=== PATIENT | female | born 1995 | race Caucasian/White ===

== ENCOUNTER 2016-06-20 21:28 | Emergency (ER) | payer OTHER ==
[2016-06-20 21:35] VITALS: BP 140/75; PULSE 103; RESP 16; TEMP 98.6; O2SAT 97
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
[2016-06-20] MEDS ORDERED: TDAP ADULT 0.5 ML INJ (BOOSTRIX) IM ONE (22:04)
== END 2016-06-20 22:33 | disposition home or self-care (01) ==
DX: T22.212A Burn of second degree of left forearm, initial encounter (principal); T31.0 Burns involving less than 10% of body surface; Z23 Encounter for immunization; X19.XXXA Contact with other heat and hot substances, initial encounter; Y93.89 Activity, other specified

== ENCOUNTER 2017-11-08 11:05 | Emergency (ER) | payer OTHER ==
[2017-11-08 11:32] LABS: PLATELET COUNT 315 10^3/uL (150-400)
--- NOTE | 2017-11-08 11:43 | EDPHY ---
H & P Time Seen by Provider: 11/08/17 11:16 HPI/ROS: CHIEF COMPLAINT: Vaginal bleeding HISTORY OF PRESENT ILLNESS: The patient is a 21-year-old female G1 para 0 last menstrual period 08/06/2017 who presents to the emergency department with vaginal bleeding. Patient states she developed abdominal cramping last Saturday or . She saw Dr. Saavedra at [facility] and underwent ultrasound imaging. She was told that she potentially had a sac with no true fetus. On Saturday she had a recheck. At that time a repeat ultrasound showed a heartbeat. Over the weekend the patient has had intermittent spotting. This morning she had increased vaginal bleeding with bright red blood. She has mild suprapubic cramping. This feels similar to menses. No lightheadedness or dizziness. REVIEW OF SYSTEMS: 10 systems were reveiwed and are negative with the exception of the elements mentioned in the history of present illness. Past Medical/Surgical History: Negative Past surgical history: Orthopedic surgery Social history: Patient does not smoke Smoking Status: Never smoked Physical Exam: Vitals noted GENERAL: Well-appearing, in no acute distress, alert. HEENT: Eyes normal to inspection,no signs of dehydration. NECK: Normal, supple. RESPIRATORY: Clear to auscultation bilaterally, no rales, rhonchi or wheezing. CVS: Regular rate and rhythm, no rubs, murmurs, or gallops. ABDOMEN: Soft, mild suprapubic tenderness to palpation with no rebound or guarding, nondistended, no organomegaly. BACK: Normal to inspection, no CVA tenderness. SKIN: Normal color, no rash, warm, dry. No pallor. EXTREMITIES: No pedal edema, no calf tenderness, no Homans sign or cords, no joint swelling. NEURO/PSYCH: Alert and oriented, normal mood and affect Constitutional: Initial Vital Signs Temperature (C) 37.0 C 11/08/17 11:07 Heart Rate 84 11/08/17 11:07 Respiratory Rate 16 11/08/17 11:07 Blood Pressure 137/99 H 11/08/17 11:07 O2 Sat (%) 97 11/08/17 11:07 O2 Delivery Mode Room Air Allergies/Adverse Reactions: corn [[place]] Allergy (Verified 01/31/14 00:48) Iodine and Iodide Containing Produc Allergy (Verified 06/20/16 21:35) soy Allergy (Verified 01/31/14 00:48) wheat Allergy (Verified 01/31/14 00:48) nuts Allergy (Uncoded 01/31/14 00:48) sesame Allergy (Uncoded 01/31/14 00:48) Home Medications: Medication Instructions Recorded Hydrocodone/APAP 5/325 [[place] 1 - 2 tab PO Q4 #13 tab 11/08/17 5/325 (RX)] Ondansetron Odt [Zofran Odt 4 mg 4 mg PO Q4PRN PRN #7 tab 11/08/17 (*)] Medical Decision Making - Diagnostics Imaging Results: Imaging Impressions Obstetrics Ultrasound 11/08/17 11:19 Impression: 1. Early intrauterine with no cardiac activity. The deformed gestational sac in the lower uterine segment suggests this could be a failed . Recommend follow up. 2. No heterotopic or free fluid. Findings discussed with Emergency Department physician, Licha Lopez on , 13:37. ED Course/Re-evaluation: In the emergency department I discussed possible etiologies with the patient and family. I answered all her questions. An IV was placed. Laboratory studies and ultrasound were obtained. Patient's CBC and chemistry are unremarkable. The patient is quant is 2002. On 10/22/2017 her quant was [id number]. I received a call from the lab reporting that she had a positive anti-d test. Ultrasound: Early IUP with a gestational age of approximately 6 weeks and 0 days. There is no visible cardiac activity. After discussion with the radiologist he recommended further imaging by ultrasound. I discussed the laboratory findings with the patient. She states that she received RhoGAM approximately 1 month ago [facility] This would account for positive anti-d test. I again discussed ultrasound result with the radiologist. He did not visualize any cardiac activity. I discussed the case with Dr. Belcher. She recommended f/u next week. I discussed the results with the patient and family. I reviewed the beta quant and US results. Differential Diagnosis: My differential includes but is not limited to , ectopic , , previa, urinary tract infection, pyelonephritis - Data Points Laboratory Results: Laboratory Results 11/08/17 11:15 11/08/17 11:15 11/08/17 11/08/1718 11:35 11:15 11:15 WBC RBC Hgb Hct MCV MCH MCHC RDW Plt Count MPV Neut % (Auto) Lymph % (Auto) [place] % (Auto) Eos % (Auto) Baso % (Auto) Nucleat RBC Rel Count Absolute Neuts (auto) Absolute Lymphs (auto) Absolute Monos (auto) Absolute Eos (auto) Absolute Basos (auto) Absolute Nucleated RBC Immature Gran % Immature Gran # Sodium 141 mEq/L mEq/L (135-145) Potassium 4.2 mEq/L mEq/L (3.3-5.0) Chloride 106 mEq/L mEq/L (97-110) Carbon Dioxide 22 mEq/l mEq/l (22-31) Anion Gap 13 mEq/L mEq/L (8-16) BUN 12 mg/dL mg/dL (7-23) Creatinine 0.8 mg/dL mg/dL (0.6-1.0) Estimated GFR > 60 Glucose 90 mg/dL mg/dL (70-100) Calcium 9.9 mg/dL mg/dL (8.5-10.4) Beta HCG, Quant 2003.50 mIU/mL H mIU/mL (0.00-4.83) Urine Color RED Urine Appearance MODERATELY TURBID Urine pH 8.0 H (5.0-7.5) Ur Specific [place] 1.018 (1.002-1.030) Urine Protein 1+ H (NEGATIVE) Urine Ketones NEGATIVE (NEGATIVE) Urine Blood 3+ H (NEGATIVE) Urine Nitrate NEGATIVE (NEGATIVE) Urine Bilirubin NEGATIVE (NEGATIVE) Urine Urobilinogen NEGATIVE EU EU (0.2-1.0) Ur Leukocyte Esterase NEGATIVE (NEGATIVE) Urine RBC 3-5 /hpf H /hpf (0-3) Urine WBC 15-25 /hpf H /hpf (0-3) Ur Epithelial Cells TRACE /lpf /lpf (NONE-1+) Amorphous Sediment PRESENT /hpf /hpf (NONE-1+) Urine Bacteria 4+ /hpf H /hpf (NONE SEEN) Urine Glucose NEGATIVE (NEGATIVE) Patient ABO/Rh O NEGATIVE Antibody Screen POSITIVE Antibody Identification Anti-D 11/08/17 11:15 WBC 7.02 10^3/uL 10^3/uL (3.80-9.50) RBC 4.51 10^6/uL 10^6/uL (4.18-5.33) Hgb 13.6 g/dL g/dL (12.6-16.3) Hct 40.7 % % (38.0-47.0) MCV 90.2 fL fL (81.5-99.8) MCH 30.2 pg pg (27.9-34.1) MCHC 33.4 g/dL g/dL (32.4-36.7) RDW 13.1 % % (11.5-15.2) Plt Count 315 10^3/uL 10^3/uL (150-400) MPV 8.7 fL fL (8.7-11.7) Neut % (Auto) 46.7 % % (39.3-74.2) Lymph % (Auto) 40.2 % % (15.0-45.0) [place] % (Auto) 8.0 % % (4.5-13.0) Eos % (Auto) 4.4 % % (0.6-7.6) Baso % (Auto) 0.4 % % (0.3-1.7) Nucleat RBC Rel Count 0.0 % % (0.0-0.2) Absolute Neuts (auto) 3.28 10^3/uL 10^3/uL (1.70-6.50) Absolute Lymphs (auto) 2.82 10^3/uL 10^3/uL (1.00-3.00) Absolute Monos (auto) 0.56 10^3/uL 10^3/uL (0.30-0.80) Absolute Eos (auto) 0.31 10^3/uL 10^3/uL (0.03-0.40) Absolute Basos (auto) 0.03 10^3/uL 10^3/uL (0.02-0.10) Absolute Nucleated RBC 0.00 10^3/uL 10^3/uL (0-0.01) Immature Gran % 0.3 % % (0.0-1.1) Immature Gran # 0.02 10^3/uL 10^3/uL (0.00-0.10) Sodium Potassium Chloride Carbon Dioxide Anion Gap BUN Creatinine Estimated GFR Glucose Calcium Beta HCG, Quant Urine Color Urine Appearance Urine pH Ur Specific [place] Urine Protein Urine Ketones Urine Blood Urine Nitrate Urine Bilirubin Urine Urobilinogen Ur Leukocyte Esterase Urine RBC Urine WBC Ur Epithelial Cells Amorphous Sediment Urine Bacteria Urine Glucose Patient ABO/Rh Antibody Screen Antibody Identification Medications Given: Discontinued Medications Fentanyl (Sublimaze) 50 mcg IVP EDNOW ONE Stop: 11/08/17 12:20 Last Admin: 11/08/17 12:26 Dose: 50 mcg Ondansetron HCl (Zofran) 4 mg IVP EDNOW ONE Stop: 11/08/17 12:20 Last Admin: 11/08/17 12:28 Dose: 4 mg Departure - Departure Disposition: Home, Routine, Self-Care Clinical Impression: Threatened Condition: Good Instructions: Threatened Miscarriage (ED) Additional Instructions: You need close follow-up with Dr. Martin. Return with increasing pain, vomiting , significant bleeding or any other concerns. Referrals: Elvia Martin MD [Unknown] - 5-7 days, call for appt. Prescriptions: Hydrocodone/APAP 5/325 [[place] 5/325 (RX)] 1 - 2 tab PO Q4 #13 tab Ondansetron Odt [Zofran Odt 4 mg (*)] 4 mg PO Q4PRN PRN #7 tab PRN Reason: For Nausea & Vomiting
[2017-11-08] MEDS ORDERED: fentaNYL 100 MCG/2 ML INJ IVP ONE (12:19)
[2017-11-08] MEDS ORDERED: ONDANSETRON 4 MG/2 ML VIAL IVP ONE (12:19)
[2017-11-08] MEDS ORDERED: ACETAMINOPHEN 325 MG TAB ONE (13:34)
[2017-11-08] MEDS ORDERED: ACETAMINOPHEN 325 MG TAB PO ONE (13:36)
[2017-11-08 14:42] VITALS: BP 105/50
== END 2017-11-08 14:43 | disposition home or self-care (01) ==
DX: O20.0 Threatened abortion (principal); Z3A.01 Less than 8 weeks gestation of pregnancy
CPT/HCPCS: 96374; J2405; J3010

== ENCOUNTER 2017-12-10 16:57 | Emergency (ER) | payer OTHER ==
[2017-12-10 17:03] VITALS: BP 128/88
[2017-12-10] MEDS ORDERED: FAMOTIDINE 20 MG TAB PO ONE (17:15)
--- NOTE | 2017-12-10 17:17 | EDPHY ---
H & P Stated Complaint: vomited red "blood" after etoh last night no complaints currently - Personal History LMP (Females 10-55): Extended Cycle BCP/Inj - Medical/Surgical History Hx Asthma: Yes Hx Chronic Respiratory Disease: No Hx Diabetes: No Hx Cardiac Disease: No Hx Renal Disease: No Hx Cirrhosis: No Hx Alcoholism: No Hx HIV/AIDS: No Hx Splenectomy or Spleen Trauma: No Other PMH: asthma - Social History Smoking Status: Never smoked Time Seen by Provider: 12/10/17 17:03 HPI/ROS: CHIEF COMPLAINT: Vomit with bloody appearance x1 HISTORY OF PRESENT ILLNESS: 22-year-old female via private vehicle states that last evening after consuming 4 beers she vomited once and had a bloody appearance. She contacted her PCP today recommend she come to the ER for evaluation. Today she has been tolerating oral intake. She denies abdominal pain. She has not had a bowel movement therefore unaware of melena or hematochezia . Denies back or flank pain. Denies further episodes of vomiting. No nausea. No anticoagulant use. Denies: Petechiae, unusual bruising or bleeding, gingival bleeding, epistaxis PRIMARY CARE PROVIDER: REVIEW OF SYSTEMS: 10 systems reviewed and negative with the exception of the elements mentioned in the history of present illness PAST MEDICAL & SURGICAL HISTORY: No pertinent medical or surgical history SOCIAL HISTORY:Positive for alcohol use last night PHYSICAL EXAM (Prior to examination, patient consented to physical exam, hands were washed and my usual and customary physical exam procedures followed) 1) GENERAL: Well-developed, well-nourished, alert and oriented. Appears to be in no acute distress. 2) HEAD: Normocephalic, atraumatic 3) HEENT: Pupils equal, round, reactive to light bilaterally. Sclera anicteric. Nasopharynx, oropharynx, clear, no lesions. Moist Mucous membranes. No gingival bleeding. No lesions. 4) NECK: Full range of motion, no meningeal signs. 5) LUNGS: Clear auscultation bilaterally, no wheezes, no rhonchi, no retractions. 6) HEART: Regular rate and rhythm, no murmur, no heave, no gallop. 7) ABDOMEN: No guarding, no rebound, no focal tenderness, negative McBurney's, negative Burgos's, negative Rovsing's, negative peritoneal sign, unable to elicit any abdominal pain including epigastric pain. 8) MUSCULOSKELETAL: Moving all extremities, no focal areas of tenderness, no obvious trauma. No peripheral edema or discoloration. 9) BACK: No CVA tenderness, no midline vertebral tenderness, no fluctuance, no step-off, no obvious trauma, no visual or palpable abnormality. 10) SKIN: No rash, no petechiae. 11) Psychiatric: Patient is oriented X 3, there is no agitation. DIFFERENTIAL DIAGNOSIS: In no particular order including but not limited to Boerhaave syndrome, Pura-Noguera tear, factitious hematemesis, peptic ulcer disease (Natividad Tobin) Constitutional: Initial Vital Signs Temperature (C) 36.7 C 12/10/17 17:00 Heart Rate 87 12/10/17 17:00 Respiratory Rate 18 12/10/17 17:00 Blood Pressure 128/88 H 12/10/17 17:00 O2 Sat (%) 98 12/10/17 17:00 O2 Delivery Mode Room Air Allergies/Adverse Reactions: corn [[place]] Allergy (Verified 01/31/14 00:48) Iodine and Iodide Containing Produc Allergy (Verified 06/20/16 21:35) soy Allergy (Verified 01/31/14 00:48) wheat Allergy (Verified 01/31/14 00:48) nuts Allergy (Uncoded 01/31/14 00:48) sesame Allergy (Uncoded 01/31/14 00:48) Home Medications: Medication Instructions Recorded ALBUTEROL SULFATE 12/10/17 Adderall 10 MG (*) 12/10/17 Depo-Provera 150 mg/ml (*) 12/10/17 Famotidine [Pepcid 20 MG (OTC)] 20 mg PO DAILY #10 tab 12/10/17 Other Provider: 17:15 I evaluated this patient at the request of LUIS Marquis. The patient is a healthy 22 year old female presenting after one episode of vomiting with some blood associated. She endorses some alcohol consumption yesterday evening and was not feeling particularly well prior to this. She has not had any recurrent episodes of vomiting. No blood in her stool. On exam, the patient has a benign abdomen. Plan to administer 40mg PO Pepcid for symptom relief. No further testing indicated at this time. I concur with Nannette Tobin's evaluation and plan. She will be discharged home in good condition with a prescription for Pepcid 20mg QD. She is comfortable with this plan. (Orlin Guerra) - Data Points Medications Given: Discontinued Medications Famotidine (Pepcid) 40 mg PO EDNOW ONE Stop: 12/10/17 17:16 Last Admin: 12/10/17 17:19 Dose: 40 mg Departure - Departure Disposition: Home, Routine, Self-Care Clinical Impression: Vomiting Qualifiers: Vomiting type: unspecified Vomiting Intractability: non-intractable Nausea presence: with nausea Qualified Code(s): R11.2 - Nausea with vomiting, unspecified Condition: Good Instructions: Famotidine (By mouth), Acute Nausea and Vomiting (ED) Additional Instructions: Take Pepcid as prescribed, 20mg daily. Follow up with your primary care provider in 2-3 days. Return to the ED for worsening or changing abdominal pain, uncontrollable vomiting, recurrent episodes of blood in your vomit or if you have blood in your stool, fever, or other worsening of condition. Referrals: Pat Gant MD [Primary Care Provider] - As per Instructions Prescriptions: Famotidine [Pepcid 20 MG (OTC)] 20 mg PO DAILY #10 tab
== END 2017-12-10 17:28 | disposition home or self-care (01) ==
DX: R11.2 Nausea with vomiting, unspecified (principal); J45.909 Unspecified asthma, uncomplicated

== ENCOUNTER 2018-01-28 01:32 | Emergency (ER) | payer OTHER ==
[2018-01-28 01:41] VITALS: BP 125/95
--- NOTE | 2018-01-28 01:43 | EDPHY ---
H & P Stated Complaint: L 2ND FINGER LAC/CUT IT ON BEER BOTTLE Time Seen by Provider: 01/28/18 01:42 HPI/ROS: HPI CHIEF COMPLAINT: Laceration to left index finger Tip. HISTORY OF PRESENT ILLNESS: 22-year-old female, otherwise healthy, history of asthma, presents emergency room with a small tip laceration left index finger. This is an avulsion laceration. It has a capillary bleed. No large laceration that needs to be repaired. Tetanus shot up-to-date. She cut her finger index finger tip left-sided on a beer bottle. Past Medical History: Medical history asthma Past Surgical History: Extensive left foot surgery. Social History: Noncontributory Family History: Noncontributory ROS REVIEW OF SYSTEMS: 10 Systems were reviewed and negative with the exception of the elements mentioned in the history of present illness. Exam Constitutional triage nursing summary reviewed, vital signs reviewed, awake/ alert. Eyes normal conjunctivae and sclera, EOMI, PERRLA. HENT normal inspection, atraumatic, moist mucus membranes, no epistaxis, neck supple/ no meningismus, no raccoon eyes. Respiratory clear to auscultation bilaterally, normal breath sounds, no respiratory distress, no wheezing. Cardiovascular rate normal, regular rhythm, no murmur, no edema, distal pulses normal. Gastrointestinal soft, non-tender, no rebound, no guarding, normal bowel sounds, no distension, no pulsatile mass. Genitourinary no CVA tenderness. Musculoskeletal no midline vertebral tenderness, full range of motion, no calf swelling, no tenderness of extremities, no meningismus, good pulses, neurovascularly intact. Skin left index: Distal aspect, tip, very small avulsion laceration. Less than a cm but capillary bleed. Neurologic awake, alert and oriented x 3, AAOx3, moves all 4 extremities equally, motor intact, sensory intact, CN II-XII intact, normal cerebellar, normal vision, normal speech. Psychiatric normal mood/affect. Heme/Lymph/Immune no lymphadenopathy. Differential Diagnosis: Includes but is not limited to in a particular order: Tip laceration finger, avulsion laceration, soft tissue injury, Medical Decision Making: Plan for this patient copiously irrigating clean her wound. The laceration is very small. Does not require sutures. Tip avulsion. Re-evaluation: Plan for this patient given his the distal tip of the left index finger small avulsion will apply Surgicel. Monitor for further bleeding. Patient had Surgicel applied. Good hemostasis. Patient placed in a finger splint for comfort and protection. Watch for signs of infection. Return precautions discussed Surgicel fall off eventually with warm soapy water. Source: Patient - Personal History LMP (Females 10-55): Extended Cycle BCP/Inj Current Tetanus Diphtheria and Acellular Pertussis (TDAP): Yes - Medical/Surgical History Hx Asthma: Yes Hx Chronic Respiratory Disease: No Hx Diabetes: No Hx Cardiac Disease: No Hx Renal Disease: No Hx Cirrhosis: No Hx Alcoholism: No Hx HIV/AIDS: No Hx Splenectomy or Spleen Trauma: No Other PMH: asthma, FOOT SX - Social History Smoking Status: Never smoked Constitutional: Initial Vital Signs Temperature (C) 36.4 C 01/28/18 01:38 Heart Rate 122 H 01/28/18 01:38 Respiratory Rate 20 01/28/18 01:38 Blood Pressure 125/95 H 01/28/18 01:38 O2 Sat (%) 99 01/28/18 01:38 O2 Delivery Mode Room Air Allergies/Adverse Reactions: corn [[place]] Allergy (Verified 01/31/14 00:48) Iodine and Iodide Containing Produc Allergy (Verified 06/20/16 21:35) soy Allergy (Verified 01/31/14 00:48) wheat Allergy (Verified 01/31/14 00:48) nuts Allergy (Uncoded 01/31/14 00:48) sesame Allergy (Uncoded 01/31/14 00:48) Home Medications: Medication Instructions Recorded ALBUTEROL SULFATE 12/10/17 Adderall 10 MG (*) 12/10/17 Depo-Provera 150 mg/ml (*) 12/10/17 Famotidine [Pepcid 20 MG (OTC)] 20 mg PO DAILY #10 tab 12/10/17 Departure - Departure Disposition: Home, Routine, Self-Care Clinical Impression: Finger laceration Qualifiers: Encounter type: initial encounter Finger: index finger Damage to nail status: without damage Foreign body presence: without foreign body Laterality: left Qualified Code(s): S61.211A - Laceration without foreign body of left index finger without damage to nail, initial encounter Condition: Good Instructions: Finger Laceration (ED) Additional Instructions: 1. Allow the Surgicel to fall off. 2. Return emergency room if worsening symptoms questions or concerns. Referrals: Pat Gant MD [Primary Care Provider] - As per Instructions
== END 2018-01-28 02:23 | disposition home or self-care (01) ==
DX: S61.211A Laceration without foreign body of left index finger without damage to nail, initial encounter (principal); J45.909 Unspecified asthma, uncomplicated; W26.8XXA Contact with other sharp object(s), not elsewhere classified, initial encounter; Y92.9 Unspecified place or not applicable; Y93.9 Activity, unspecified; Y99.9 Unspecified external cause status

== ENCOUNTER 2018-04-23 17:51 | Emergency (ER) | payer OTHER ==
[2018-04-23] MEDS ORDERED: fentaNYL 100 MCG/2 ML INJ IVP ONE ×2 (18:28→19:34)
--- NOTE | 2018-04-23 18:30 | EDPHY ---
HPI/HX/ROS/PE/MDM Narrative: CHIEF COMPLAINT: Abdominal cramping, constipation HISTORY OF PRESENT ILLNESS: This patient is a 22 year old female with history of asthma complaining of abdominal cramping and constipation. [No fever, chills, chest pain, shortness of breath, palpitations, vomiting, diarrhea, urinary complaints, headache, lightheadedness. ] REVIEW OF SYSTEMS: A comprehensive 10 system review of systems is otherwise negative aside from elements mentioned in the history of present illness and medical decision making. PAST MEDICAL HISTORY: Asthma, foot surgery SOCIAL HISTORY: Single, lives in [place], does not abuse tobacco, drugs, or alcohol VITAL SIGNS: Reviewed by me GENERAL: Well-developed, well-nourished, resting comfortably in no respiratory distress. HEENT: Atraumatic. Eyes: No icterus, no injection. Mouth: moist mucous membranes. No erythema or lesions. Neck: supple with no adenopathy. LUNGS: Clear to auscultation bilaterally, no wheezes, rhonchi or rales. CARDIAC: Regular rate and rhythm, no rubs, murmurs or gallops. ABDOMEN: Soft, nontender, nondistended, bowel sounds normal. BACK: No CVA tenderness. EXTREMITIES: No trauma. No edema. Range of motion is normal throughout. NEURO: Alert and oriented, grossly nonfocal. SKIN: Warm and dry, no rash. PSYCHIATRIC: Normal mentation, no agitation. Portions of this note were transcribed by a medical office assistant. I personally performed a history, physical exam, medical decision making, and confirmed accuracy of information the transcribed note. ED Course: 22 year old female presents with [] history of abdominal pain. On exam, [].She is afebrile, vitals are within normal limits. Plan for CT abdomen/pelvis, labs including CBC, chemistries, UA, BHCG. Plan to administer 50mcg IV Fentanyl for pain relief. - Data Points Imaging Results: Imaging Impressions Abdomen/Pelvis CT 04/23/18 18:28 Impression:1. Obstipation/severe constipation. 2. Distended urinary bladder. Results discussed with Dr. Marilynn John at 7:26 PM General information for patients regarding this examination can be found at [email or web address]. If you have questions or comments about this report, please contact me at (hospital) or [phone] (cell). Imaging: Discussed imaging studies w/ counter hand Radiologist Laboratory Results: Laboratory Results 04/23/18 18:15 04/23/18 18:15 04/23/18 04/23/18 04/23/18 19:17 18:15 18:15 WBC RBC Hgb Hct MCV MCH MCHC RDW Plt Count MPV Neut % (Auto) Lymph % (Auto) [place] % (Auto) Eos % (Auto) Baso % (Auto) Nucleat RBC Rel Count Absolute Neuts (auto) Absolute Lymphs (auto) Absolute Monos (auto) Absolute Eos (auto) Absolute Basos (auto) Absolute Nucleated RBC Immature Gran % Immature Gran # Sodium 139 mEq/L mEq/L (135-145) Potassium 3.5 mEq/L mEq/L (3.5-5.2) Chloride 106 mEq/L mEq/L (97-110) Carbon Dioxide 20 mEq/l L mEq/l (22-31) Anion Gap 13 mEq/L mEq/L (6-14) BUN 9 mg/dL mg/dL (7-23) Creatinine 1.0 mg/dL mg/dL (0.6-1.0) Estimated GFR > 60 Glucose 99 mg/dL mg/dL (70-100) Calcium 10.1 mg/dL mg/dL (8.5-10.4) Beta HCG, Qual NEGATIVE Urine Color PALE YELLOW Urine Appearance CLEAR Urine pH 7.0 (5.0-7.5) Ur Specific [place] 1.001 L (1.002-1.030) Urine Protein NEGATIVE (NEGATIVE) Urine Ketones NEGATIVE (NEGATIVE) Urine Blood NEGATIVE (NEGATIVE) Urine Nitrate NEGATIVE (NEGATIVE) Urine Bilirubin NEGATIVE (NEGATIVE) Urine Urobilinogen NEGATIVE EU EU (0.2-1.0) Ur Leukocyte Esterase NEGATIVE (NEGATIVE) Urine RBC Pending Urine WBC Pending Ur Epithelial Cells Pending Urine Glucose NEGATIVE (NEGATIVE) 04/23/18 18:15 WBC 6.60 10^3/uL 10^3/uL (3.80-9.50) RBC 4.63 10^6/uL 10^6/uL (4.18-5.33) Hgb 14.2 g/dL g/dL (12.6-16.3) Hct 41.6 % % (38.0-47.0) MCV 89.8 fL fL (81.5-99.8) MCH 30.7 pg pg (27.9-34.1) MCHC 34.1 g/dL g/dL (32.4-36.7) RDW 12.1 % % (11.5-15.2) Plt Count 339 10^3/uL 10^3/uL (150-400) MPV 9.0 fL fL (8.7-11.7) Neut % (Auto) 45.0 % % (39.3-74.2) Lymph % (Auto) 46.5 % H % (15.0-45.0) [place] % (Auto) 6.4 % % (4.5-13.0) Eos % (Auto) 1.7 % % (0.6-7.6) Baso % (Auto) 0.2 % L % (0.3-1.7) Nucleat RBC Rel Count 0.0 % % (0.0-0.2) Absolute Neuts (auto) 2.98 10^3/uL 10^3/uL (1.70-6.50) Absolute Lymphs (auto) 3.07 10^3/uL H 10^3/uL (1.00-3.00) Absolute Monos (auto) 0.42 10^3/uL 10^3/uL (0.30-0.80) Absolute Eos (auto) 0.11 10^3/uL 10^3/uL (0.03-0.40) Absolute Basos (auto) 0.01 10^3/uL L 10^3/uL (0.02-0.10) Absolute Nucleated RBC 0.00 10^3/uL 10^3/uL (0-0.01) Immature Gran % 0.2 % % (0.0-1.1) Immature Gran # 0.01 10^3/uL 10^3/uL (0.00-0.10) Sodium Potassium Chloride Carbon Dioxide Anion Gap BUN Creatinine Estimated GFR Glucose Calcium Beta HCG, Qual Urine Color Urine Appearance Urine pH Ur Specific [place] Urine Protein Urine Ketones Urine Blood Urine Nitrate Urine Bilirubin Urine Urobilinogen Ur Leukocyte Esterase Urine RBC Urine WBC Ur Epithelial Cells Urine Glucose Medications Given: Discontinued Medications Fentanyl (Sublimaze) 50 mcg IVP EDNOW ONE Stop: 04/23/18 18:29 Last Admin: 04/23/18 18:49 Dose: 50 mcg Sodium Chloride (Ns) 1,000 mls @ 0 mls/hr IV ONCE ONE PRN Reason: Wide Open Stop: 04/23/18 18:52 Last Admin: 04/23/18 18:52 Dose: 1,000 mls General Time Seen by Provider: 04/23/18 18:04 Initial Vital Signs: Initial Vital Signs Temperature (C) 36.5 C 04/23/18 17:55 Heart Rate 90 04/23/18 17:55 Respiratory Rate 18 04/23/18 17:55 Blood Pressure 125/83 H 04/23/18 17:55 O2 Sat (%) 97 04/23/18 17:55 O2 Delivery Mode Room Air Allergies/Adverse Reactions: corn [[place]] Allergy (Verified 04/23/18 17:54) Iodine and Iodide Containing Produc Allergy (Verified 04/23/18 17:54) soy Allergy (Verified 04/23/18 17:54) wheat Allergy (Verified 04/23/18 17:54) nuts Allergy (Uncoded 01/31/14 00:48) sesame Allergy (Uncoded 01/31/14 00:48) Home Medications: Medication Instructions Recorded ALBUTEROL SULFATE 12/10/17 Adderall 10 MG (*) 12/10/17 Gabapentin 04/23/18 Misoprostol 04/23/18 Departure - Departure Disposition: Home, Routine, Self-Care Clinical Impression: Distended bladder Constipation Qualifiers: Constipation type: other constipation type Qualified Code(s): K59.09 - Other constipation Condition: Good Instructions: Constipation (ED), High Fiber Diet (ED) Additional Instructions: Stay well hydrated. Be sure to urinate as soon as you can when you feel the urge. Try to maintain a high fiber diet. For your constipation, we recommend obtaining Magnesium Citrate, available over the counter. Mix 1/2 bottle with 16oz of Gatorade. If you do not have a bowel movement within 4 hours, repeat the above with the second half bottle. You may try MiraLax, available over the counter, as directed on the packaging. Follow up with your primary care provider in 2-3 days. Return to the emergency department for worsening pain, fever, severe vomiting, change in character or severity of pain or other worsening of condition. Referrals: Pat Gant MD [Primary Care Provider] - As per Instructions Report Scribed for: Marilynn John Report Scribed by: Sera Alvarado Date of Report: 04/23/18 Time of Report: 18:33
[2018-04-23 18:35] LABS: PLATELET COUNT 339 10^3/uL (150-400)
[2018-04-23] MEDS ORDERED: NS 1,000 ML IV ONE (18:51)
[2018-04-23] MEDS ORDERED: IOPAMIDOL (ISOVUE-300) 100 ML BTL ONE (18:54)
[2018-04-23] MEDS ORDERED: HALOPERIDOL LACT 5 MG/ML INJ IVP ONE (19:34)
[2018-04-23] MEDS ORDERED: DICYCLOMINE 10 MG CAP PO ONE (19:49)
[2018-04-23 19:58] VITALS: BP 116/66
== END 2018-04-23 19:56 | disposition home or self-care (01) ==
DX: K59.09 Other constipation (principal); N32.89 Other specified disorders of bladder
CPT/HCPCS: 96374; J1630; J3010; Q9967

== ENCOUNTER 2018-04-27 05:07 | Emergency (ER) | payer OTHER ==
[2018-04-27] MEDS ORDERED: MAG HYDROX/AL HYDROX/SIMETH 30 ML UDCUP PO ONE (05:40)
[2018-04-27] MEDS ORDERED: HYOSCYAMINE SULFATE 0.125 MG TAB PO ONE (05:40)
[2018-04-27] MEDS ORDERED: LIDOCAINE 2% VISCOUS 15 ML UDCUP PO ONE (05:40)
[2018-04-27] MEDS ORDERED: LACTULOSE 20 GM/30 ML UDCUP PO ONE (05:40)
[2018-04-27 05:46] LABS: PLATELET COUNT 302 10^3/uL (150-400)
--- NOTE | 2018-04-27 06:20 | EDPHY ---
H & P Stated Complaint: EPIGASTRIC PAIN AND CRAMPING, WAS CONSTIPATED 2 DAYS AGO Time Seen by Provider: 04/27/18 05:19 HPI/ROS: HPI The patient presents with ongoing diffuse abdominal pain greater in her upper than lower abdomen which is crampy and sharp in nature and has been intermittent for the last several days. She was seen in the emergency department 3 days ago and diagnosed with constipation based on CT scan. She went home and has been taking MiraLax and smooth move tea for this. She said that she has had a total of 5 bowel movements that have been nonpainful. She does not have any nausea or vomiting. She is passing gas without difficulty. She is worried because her abdominal pain persists. She has stopped taking gabapentin for the last 1 week.. REVIEW OF SYSTEMS 10 systems were reviewed and negative with the exception of the elements mentioned in the history of present illness. PMHx: Recent diagnosis of constipation, history of asthma Soc Hx: Here by herself, no recent alcohol use PHYSICAL General Appearance: Alert, tearful Eyes: Pupils equal and round no pallor or injection ENT, Mouth: Mucous membranes moist Respiratory: There are no retractions, lungs are clear to auscultation Cardiovascular: Regular rate and rhythm Gastrointestinal: Abdomen is soft and non-tender, no masses, bowel sounds normal Neurological: A&O, moves all extremities Skin: Warm and dry, no rashes Musculoskeletal: Neck is supple non tender Extremities: symmetrical, full range of motion Psychiatric: Patient is oriented X 3, there is no agitation Source: Patient Exam Limitations: No limitations - Personal History LMP (Females 10-55): 1-7 Days Ago Current Tetanus/Diphtheria Vaccine: Yes Current Tetanus Diphtheria and Acellular Pertussis (TDAP): Yes - Medical/Surgical History Hx Asthma: Yes Hx Chronic Respiratory Disease: No Hx Diabetes: No Hx Cardiac Disease: No Hx Renal Disease: No Hx Cirrhosis: No Hx Alcoholism: No Hx HIV/AIDS: No Hx Splenectomy or Spleen Trauma: No Other PMH: asthma, FOOT SX - Social History Smoking Status: Never smoked Constitutional: Initial Vital Signs Temperature (C) 36.5 C 04/27/18 05:09 Heart Rate 104 H 04/27/18 05:09 Respiratory Rate 18 04/27/18 05:09 Blood Pressure 147/99 H 04/27/18 05:09 O2 Sat (%) 96 04/27/18 05:09 O2 Delivery Mode Room Air Allergies/Adverse Reactions: corn [[place]] Allergy (Verified 04/27/18 05:11) Iodine and Iodide Containing Produc Allergy (Verified 04/27/18 05:11) soy Allergy (Verified 04/27/18 05:11) wheat Allergy (Verified 04/27/18 05:11) nuts Allergy (Uncoded 04/27/18 05:11) sesame Allergy (Uncoded 04/27/18 05:11) Home Medications: Medication Instructions Recorded ALBUTEROL SULFATE 12/10/17 Adderall 10 MG (*) 12/10/17 Dicyclomine [Bentyl 20 MG (*)] 20 mg PO QID PRN #20 tab 04/23/18 Gabapentin 04/23/18 Misoprostol 04/23/18 Medical Decision Making - Diagnostics Imaging Results: KUB demonstrates nonspecific bowel gas pattern, interpreted by me, radiology interpretation pending. Differential Diagnosis: 22-year-old female, recently diagnosed with constipation 2 days ago in the emergency department based on CT scan findings presents with ongoing abdominal pain, despite multiple bowel movements. Here, vital signs are normal, she is tearful though her abdominal exam is benign. She is able to pass gas. Differential diagnosis includes ongoing constipation, gastritis, GERD. In the emergency department, patient was given lactulose for constipation and a GI cocktail. Basic labs were performed and normal. KUB was performed and did not demonstrate any severe constipation. She felt better after medication. I suspect she may have gastritis. I have advised her to continue taking MiraLax, bland diet, plenty of fluids, antacids as needed. - Data Points Laboratory Results: Laboratory Results 04/27/18 05:25 04/27/18 05:25 04/27/18 04/27/18 05:25 05:25 WBC 7.43 10^3/uL 10^3/uL (3.80-9.50) RBC 4.53 10^6/uL 10^6/uL (4.18-5.33) Hgb 13.8 g/dL g/dL (12.6-16.3) Hct 40.9 % % (38.0-47.0) MCV 90.3 fL fL (81.5-99.8) MCH 30.5 pg pg (27.9-34.1) MCHC 33.7 g/dL g/dL (32.4-36.7) RDW 12.2 % % (11.5-15.2) Plt Count 302 10^3/uL 10^3/uL (150-400) MPV 9.1 fL fL (8.7-11.7) Neut % (Auto) 38.0 % L % (39.3-74.2) Lymph % (Auto) 45.6 % H % (15.0-45.0) [place] % (Auto) 8.5 % % (4.5-13.0) Eos % (Auto) 7.1 % % (0.6-7.6) Baso % (Auto) 0.5 % % (0.3-1.7) Nucleat RBC Rel Count 0.0 % % (0.0-0.2) Absolute Neuts (auto) 2.82 10^3/uL 10^3/uL (1.70-6.50) Absolute Lymphs (auto) 3.39 10^3/uL H 10^3/uL (1.00-3.00) Absolute Monos (auto) 0.63 10^3/uL 10^3/uL (0.30-0.80) Absolute Eos (auto) 0.53 10^3/uL H 10^3/uL (0.03-0.40) Absolute Basos (auto) 0.04 10^3/uL 10^3/uL (0.02-0.10) Absolute Nucleated RBC 0.00 10^3/uL 10^3/uL (0-0.01) Immature Gran % 0.3 % % (0.0-1.1) Immature Gran # 0.02 10^3/uL 10^3/uL (0.00-0.10) Sodium 137 mEq/L mEq/L (135-145) Potassium 3.9 mEq/L mEq/L (3.5-5.2) Chloride 108 mEq/L mEq/L (97-110) Carbon Dioxide 19 mEq/l L mEq/l (22-31) Anion Gap 10 mEq/L mEq/L (6-14) BUN 18 mg/dL mg/dL (7-23) Creatinine 0.9 mg/dL mg/dL (0.6-1.0) Estimated GFR > 60 Glucose 91 mg/dL mg/dL (70-100) Calcium 9.6 mg/dL mg/dL (8.5-10.4) Total Bilirubin 0.5 mg/dL mg/dL (0.1-1.4) AST 22 IU/L IU/L (14-46) ALT 15 IU/L IU/L (9-52) Alkaline Phosphatase 83 IU/L IU/L (38-126) Total Protein 7.4 g/dL g/dL (6.3-8.2) Albumin 4.5 g/dL g/dL (3.5-5.0) Medications Given: Discontinued Medications Al Hydroxide/Mg Hydroxide (Maalox Susp) 30 ml PO ONCE ONE Stop: 04/27/18 05:41 Last Admin: 04/27/18 05:51 Dose: 30 ml Hyoscyamine Sulfate (Levsin, Hyomax-Sl) 0.25 mg PO ONCE ONE Stop: 04/27/18 05:41 Last Admin: 04/27/18 05:51 Dose: 0.25 mg Lactulose (Cephulac) 20 gm PO EDNOW ONE Stop: 04/27/18 05:41 Last Admin: 04/27/18 05:51 Dose: 20 gm Lidocaine (Lidocaine 2% Viscous) 15 ml PO ONCE ONE Stop: 04/27/18 05:41 Last Admin: 04/27/18 05:51 Dose: 15 ml Departure - Departure Disposition: Home, Routine, Self-Care Clinical Impression: Abdominal pain Qualifiers: Abdominal location: epigastric Qualified Code(s): R10.13 - Epigastric pain Constipation Qualifiers: Constipation type: unspecified constipation type Qualified Code(s): K59.00 - Constipation, unspecified Condition: Good Instructions: Gastritis (ED), Diet for Stomach Ulcers and Gastritis (ED) Additional Instructions: Please continue to take the MiraLax once daily for the next 1 week. You can take Maalox or Tums [id number] as needed for any ongoing stomach pains. Please eat a bland diet. Please follow-up with your primary care doctor in 1-2 days. Referrals: Pat Gant MD [Primary Care Provider] - As per Instructions
[2018-04-27 07:05] VITALS: BP 112/82
== END 2018-04-27 07:08 | disposition home or self-care (01) ==
DX: R10.13 Epigastric pain (principal); K59.00 Constipation, unspecified